=== PATIENT | male | born 1945 | race Caucasian/White ===

== ENCOUNTER 2024-02-24 15:31 | Emergency (ER) | payer MEDICARE, SELFPAY ==
[2024-02-24 15:35] VITALS: BP 140/100
--- NOTE | 2024-02-24 15:49 | ED.GENMED ---
History of Present Illness
General
Chief Complaint: Musculo-Skeletal Complaint
Time Seen by Provider: 02/24/24 15:49
History of Present Illness
History of Present Illness:
HPI: Patient struck his campos on concrete putting his pool cover on 4 days ago. He has a hematoma to the proximal aspect of the right campos. Although he initially indicated 'knee pain' he actually points to the area below the right knee. Because he
was concerned about a blood clot he increased his 325 mg aspirin to 3 of those a day. He takes aspirin because he had coronary bypass surgery in his 40s. He has no shortness of breath. He has some discomfort at the right calf.
EXAM:
GENERAL: Well appearing in no distress
HEENT: Moist oral mucosa
NEUROLOGIC: Excellent strength all extremities, no coordination deficits
PSYCHIATRIC: Appropriate mental status, normal insight and judgement
EXTREMITIES: There is a soft 4 x 5 cm hematoma in the superficial soft tissue at the proximal aspect of the leg beneath the right knee. There is no evidence for compartment syndrome, there is some mild right calf tenderness.
SKIN: No rash, no lesions, however there is some mild ecchymosis noted to the hematoma
TIME OF INITIAL ENCOUNTER: 4 PM
NUMBER AND COMPLEXITY OF PROBLEMS ADDRESSED AT THE ENCOUNTER
� Chronic conditions affecting care: CAD, CABG 1992, WPW
� Acute Exacerbation and/or Progression of Chronic Illness: This is an acute problem
� Differential Diagnosis includes: Superficial hematoma, highly doubt DVT, highly doubt compartment syndrome based on physical examination
AMOUNT AND/OR COMPLEXITY OF DATA TO BE REVIEWED AND ANALYZED
� I performed an independent evaluation of and my interpretation is:
EKG:
CT:
X-rays: X-rays personally reviewed and appear unremarkable
Laboratory Studies:
Other: Ultrasound imaging shows no DVT but does show hematoma
� Review of other/old records: The patient was here in September 2021 with clavicular pain
� Clinical information was obtained by an independent historian: None needed
� Prescriptions/Medications Considered but not given:
� Further testing considered but not performed:
RISK OF COMPLICATIONS AND/OR MORBIDITY OR MORTALITY OF PATIENT MANAGEMENT
� Social determinants of health affecting care: Lives at home
� Discussion with other providers:
� Escalation of care including admission/observation vs risk of discharge considered: Swelling suspect soft tissue hematoma however given the associated calf pain and worsening symptoms will obtain ultrasound. Ultrasound
unremarkable. X-ray unremarkable. Suspect more of a soft tissue hematoma.
Past History
Past History
ED Past Medical History: Arrthythmia ([id number]), CAD, Hypercholesterolemia and Other (Aortic aneurysm, osteomyelitis of medial clavicle/sternoclavicular joint)
ED Past Surgical History: Cardiac (Bypass), Orthopedic (Posterior neck surgery) and Other (Clavicle surgery due to osteomyelitis)
Social History
Tobacco: Smoker
Alcohol: None
Drug: None
Personal:
Living: with family
Employment: Employed
Family History
Family History: Other (Noncontributory)
Phy Exam
Physical Exam
Physical Exam:
See HPI
Course
Orders/Labs/Results
Orders:
Orders
02/24/24 15:40
Tib/Fib, Right 2 View [CR Leg Tibia/fibula Right 2 Vw] Urgent
Comment:
Reason For Exam: hit skin on concrete on + swelling
02/24/24 16:06
Legs, Right US [US Periph Venous LOWER Ext RT] Urgent
Comment:
Reason For Exam: RLE worsening swelling after injury
Vital Signs
Initial and Last Documented VS:
Initial Vital Signs
Temp Pulse Resp BP Pulse Ox
98.1 F 94 16 140/100 98
02/24/24 15:35 02/24/24 15:35 02/24/24 15:35 02/24/24 15:35 02/24/24 15:35
Last Documented Vital Signs
Temp Pulse Resp BP Pulse Ox
98.1 F 94 16 140/100 98
02/24/24 15:35 02/24/24 15:35 02/24/24 15:35 02/24/24 15:35 02/24/24 15:35
*Critical Care Note
Total Time (30-74mins, 75-104mins- exclusive of procedures): Not Applicable
ED Attending Note
-
Portions of this chart may have been created with voice recognition software.� Occasional wrong word or��sound alike� substitutions may have occurred due to the inherent limitations of voice recognition software.
Discharge Plan
Departure
Patient Disposition: Home (Routine Discharge)
Date of Disposition: 02/24/24
Time of Disposition: 19:27
Patient with high blood pressure during this ER visit?: Yes
Discharge Problem:
Hematoma
Instructions: Hematoma
Prescriptions:
No Action
aspirin 325 MG tablet
325 mg PO DAILY
evolocumab [Repatha SureClick] 140 MG/ML pen injector
140 mg SQ Q2W
tramadol-acetaminophen 1 EACH tablet
1 ea PO DAILYPRN PRN (Reason: moderate pain)
Patient Comments:
09/21/2021: last filled 09/16/21, 30 tabs for 30 days from [id number]
cholecalciferol (vitamin D3) 2,000 UNITS tablet
2,000 units PO DAILY
Referrals:
Corey Peter, DO [Family Provider] -
Activity Restrictions/Additional Instructions:
Continue ice and elevation. I recommend switching to just a baby aspirin for the next week. There is no abnormality to the bones by x-ray and there is no sign of a blood clot in the blood vessels, however hematoma was seen on the ultrasound.
Interventions
Interventions:
*Risk Screen - Suicide Last Done: 02/24/24 15:35
*General Assessment Last Done: 02/24/24 16:08
*Neglect/Abuse Screening Last Done: 10/07/24 15:35
*ED COVID-19 Vaccine History Last Done: 02/24/24 16:08
ED-Musculoskeletal Assessment Last Done: 02/24/24 16:08
Discharge Date and Time
Print Language: CHINESE
== END 2024-02-24 19:42 | disposition home or self-care (01) ==
LOC: EMR 15:31
PROVIDERS: EMERGENCY PHYSICIAN Emergency Medicine; FAMILY PHYSICIAN Family Medicine
DX: S80.11XA Contusion of right lower leg, initial encounter (principal); W22.8XXA Striking against or struck by other objects, initial encounter; Y93.89 Activity, other specified; Y92.008 Other place in unspecified non-institutional (private) residence as the place of occurrence of the external cause; M79.604 Pain in right leg; R60.0 Localized edema; R03.0 Elevated blood-pressure reading, without diagnosis of hypertension; I25.10 Atherosclerotic heart disease of native coronary artery without angina pectoris; I45.6 Pre-excitation syndrome; E78.00 Pure hypercholesterolemia, unspecified; I71.9 Aortic aneurysm of unspecified site, without rupture; F17.200 Nicotine dependence, unspecified, uncomplicated; Z95.1 Presence of aortocoronary bypass graft; Z79.82 Long term (current) use of aspirin
CPT/HCPCS: 99284; 73590; 93971